=== PATIENT | female | born 1950 | race Two or more races ===

== ENCOUNTER 2022-05-18 18:16 | Emergency (ER) | payer BC ==
[~2022-05-18] VITALS: Ht 172.7 cm; Wt 102.1 kg
[2022-05-18] MEDS ORDERED: predniSONE 10 MG TABLET PO ONE (19:30)
[2022-05-18] MEDS ORDERED: diphenhydrAMINE HCL 50 MG CAPSULE PO ONE (19:30)
[2022-05-18] MEDS ORDERED: FAMOTIDINE (20 MG) 20 MG TABLET PO ONE (19:30)
[2022-05-18] MEDS ORDERED: predniSONE 20 MG TABLET ONE (19:33)
[2022-05-18] MEDS ORDERED: diphenhydrAMINE HCL 50 MG CAPSULE ONE (19:33)
[2022-05-18] MEDS ORDERED: FAMOTIDINE (20 MG) 20 MG TABLET ONE (19:34)
--- NOTE | 2022-05-18 19:45 | NUR ---
RECEIVED REPORT FROM OBDULIA VELASQUEZ. PT [id number] from urgent care, had 2 allergic reaction since yesterday and took her EPI PEN, NO SOB, SATS 98% ON ROOM AIR. BG OF 182. PATIENT JUST RECEIVED ORAL MEDS FROM AM SHIFT. ATTACHED TO MONITOR. VITALS CHECKED.
[2022-05-18] MEDS ORDERED: DIPH25CA83 PO (20:36)
[2022-05-18] MEDS ORDERED: PRED20TA PO (20:36)
[2022-05-18] MEDS ORDERED: FAMO-131 PO (20:36)
[2022-05-18] MEDS ORDERED: EPIN0.3P3 IM (20:37)
--- NOTE | 2022-05-18 20:55 | NUR ---
Patient discharged to home in stable condition. Written and verbal after care instructions given. Patient verbalizes understanding of instruction.
[2022-05-18 20:56] VITALS: BP 112/57
== END 2022-05-18 20:56 | disposition home or self-care (01) ==
LOC: ER 18:19
DX: T78.1XXA Other adverse food reactions, not elsewhere classified, initial encounter (principal); R22.2 Localized swelling, mass and lump, trunk; I10 Essential (primary) hypertension; E11.9 Type 2 diabetes mellitus without complications; Z91.013 Allergy to seafood; X58.XXXA Exposure to other specified factors, initial encounter
CPT/HCPCS: 99284; Q0163; J7512